=== PATIENT | female | born 1950 | race Caucasian/White ===

== ENCOUNTER → 2020-03-14 14:11 | Outpatient (CLI) | payer MEDICARE, SELFPAY ==
--- NOTE | ~2020-03-14 | CT_ITS ---
EXAMINATION: CT facial bones wo con EXAM DATE: 03/14/2020 14:38 INDICATION: Left facial edema, neck stiffness and swelling at base of neck. Left jaw discomfort. TECHNIQUE: Spiral CT of the facial bones was acquired in the axial plane without contrast. Coronal reformatted images were also reviewed. The dose-length product (DLP) for this examination was 271.97 mGy-cm. The exposure was tailored according to patient size, and iterative reconstruction (ASIR) wa s used as additional dose reduction technique. There is no prior study for comparison. FINDINGS: There are no displaced acute nasal bone fractures. The mandible, sinuses and orbits are in tact. The orbits, globes and extraocular muscles are unremarkable. The visualized sinuses and mas toid air cells are well aerated. 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 No intraparenchymal cancer I don't wall of the right answer his. Right eye just to get kyphotic narrowing back into school back to school identified he always has stuffy nose, clogged sinu ses this time appear once the air dried IMPRESSION: Unremarkable CT facial bone exam. Reviewed, dictated and finalized at location A.
--- NOTE | ~2020-03-14 | CT_ITS ---
EXAMINATION: CT soft tissue neck wo con EXAM DATE: 03/14/2020 14:38 INDICATION: Left facial edema, neck stiffness and swelling at the base of neck, left all discomfort . TECHNIQUE: Spiral CT of the neck was performed without contrast. Axial, coronal and sagittal images were reviewed. The dose-length product (DLP) for this examination was 350.78 mGy-cm. The exposure was tailored according to patient size (auto mA exposure control), and iterative reconstruction (ASIR ) was used as additional dose reduction technique. Correlation is made to CT facial bone examination same day. FINDINGS: The thyroid gland is unremarkable. The submandibular and parotid glands are symmetric. There is no cervical lymphadenopathy. There are no masses identified. The superior mediastinum is unremarkable. The airway is unremarkable. Parapharyngeal and pre-glottic fat planes are preserve d. Limited evaluation of cervical vessels on this noncontrast study. The orbits are unremarkable. Visualized sinuses and mastoid air cells are well aerated. Lung apices are clear. There is cerv ical spondylosis. IMPRESSION: Unremarkable neck CT examination. Reviewed, dictated and finalized at location A.
== END ==
PROVIDERS: Visit Provider Surgery Plastic and Reconstructive Surgery
DX: R60.0 Localized edema (principal)
CPT/HCPCS: 70486; 70490

== ENCOUNTER 2022-08-03 13:54 | Outpatient (CLI) | payer MEDICARE, SELFPAY ==
--- NOTE | 2022-08-03 15:25 | ECG_ITS ---
Measurements Intervals [place] Rate: 68 P: 53 NE: 153 QRS: 15 QRSD: 88 T: 65 QT: 386 QTc: 413 Interpretive Statements SINUS RHYTHM BASELINE ARTIFACT- I, AVR, AVL, AVF, V5-V6 NORMAL ECG NO PREVIOUS ECG AVAILABLE FOR COMPARISON Electronically Signed On 08-03-2022 17:00:31 RN PERIOPERATIVE by Rober Childress D.O.
[2022-08-03 16:08] LABS: Basophils Percent Auto 0.5 % (0.2-1.2); Eosinophils Absolute Auto 0.1 K/mm3 (0-0.3); Eosinophils Percent Auto 1.8 % (0-4.4); Hematocrit 40.9 % (37.0-47.0); Hemoglobin 13.3 g/dL (12.0-15.0); Immature Granulocyte Absolute 0.01 K/mm3 (0.00-0.031); Immature Granulocyte Percent A 0.2 % (0-0.5); Lymphocytes Absolute Auto 2.03 K/mm3 (0.9-3.2); Lymphocytes Percent Auto 33.1 % (18.3-44.2); Mean Corpuscular HGB Conc 32.5 g/dl (32-36); Mean Corpuscular Hemoglobin 31.5 pg (26-34); Mean Corpuscular Volume 96.9 fl (80-100); Mean Platelet Volume 10.7 fl (7.4-10.4); Monocytes Absolute Auto 0.5 K/mm3 (0.1-0.6); Monocytes Percent Auto 8.8 % (2.6-8.5); Neutrophils Absolute Auto 3.4 K/mm3 (1.3-6.7); Neutrophils Percent Auto 55.6 % (45.5-73.1); Platelet Count Result 232 k/mm3 (150-375); Red Blood Count 4.22 M/mm3 (4.2-5.4); Red Cell Distribution Width 12.9 % (11.5-14.5); White Blood Count 6.1 K/mm3 (4.5-10.0)
[2022-08-03 16:19] LABS: Alanine Aminotransferase 33 U/L (6-35); Albumin Level 4.5 g/dL (3.5-5.1); Alkaline Phosphatase 62 U/L (38-126); Anion Gap 5 mmol/L (8-16); Aspartate Amino Transferase 36 U/L (14-36); Bilirubin,Total 0.3 mg/dL (0.2-1.3); Blood Urea Nitrogen 25 mg/dL (7-17); Calcium 9.2 mg/dL (8.4-10.2); Carbon Dioxide 30 mmol/L (22-30); Chloride 105 mmol/L (98-107); Estimated Glomerular Filt Rate > 60; Glucose 92 mg/dL (65-110); Potassium 4.8 mmol/L (3.4-5.0); Sodium 140 mmol/L (137-145)
[2022-08-03 16:33] LABS: Prothrombin Time 12.3 Seconds (11.1-14.7)
[2022-08-03 16:34] LABS: Partial Thromboplastin Time 27.1 SECONDS (22.3-36.8)
== END 2022-08-03 13:55 | disposition home or self-care (01) ==
PROVIDERS: PCP Family Medicine; Visit Provider Urology
DX: Z01.818 Encounter for other preprocedural examination (principal); N81.4 Uterovaginal prolapse, unspecified
CPT/HCPCS: 36415; 80053; 85025; 85610; 85730; 86850; 86900; 86901; 93005

== ENCOUNTER 2022-08-13 00:07 | Day surgery (SDC) | payer MEDICARE, SELFPAY ==
[2022-08-03 14:31] VITALS: BP 145/70; PULSE 64; RESP 16; TEMP 36.6; O2SAT 96; BMI 27.0
--- NOTE | 2022-08-03 14:51 | PC.NURSE ---
Report to the Outpatient Waiting Room, entrance under the green pavilion located off [facility], at time _10:00AM on date __08/13/22 . Planned Procedure Time: ___12:00PM . Time changes happen often and if your time is changed the preop area will call you the afternoon before. - You and your visitor will be asked to self-screen and do not enter if you have any COVID symptoms. - Only one visitor is requested with a max of two and NO children visitors are allowed at this time. - The patient visitor may be requested to leave or wait in car when not with patient due to distancing restrictions. - A mask is optional within the hospital at this time. Patients may have clear liquids (water, carbonated beverages, clear teas, apple juice) until 3 hours prior to surgery with a maximum of 20 ounces. - No food from midnight until time of surgery Take the following medications with a SIP of water the morning of surgery: __NONE DO NOT STOP ANY OF YOUR OTHER PRESCRIPTION MEDICATIONS PRIOR TO SURGERY ?EXCEPT THE FOLLOWING Medications to discontinue per physician __HOLD ALL VITAMINS/SUPPLEMENTS 7 DAYS PRE-OP PER DR FIGUEROA Date to take last dose__08/06/22 Please no make-up, nail welsh, hairspray, perfume, deodorant, or body powder the day of surgery. No jewelry (including any body piercings) or valuables the day of surgery, leave them at home. Please take a shower or bath the night before, or the morning of, surgery with an antibacterial soap. Wear comfortable, loose fitting clothing. Children are encouraged to wear pajamas. - Jewelry must be removed prior to entering the operating room. Rings and piercings that are not removed may be cut off. - The hospital will not accept responsibility for valuables. - Please leave all valuables, including medications, at home the day of surgery. If you are going home after surgery, a licensed mule driver must drive you home. - NO public transportation without another adult if you receive anesthesia. - We recommend that an adult stay with you for 24 hours following discharge. - We also recommend that you do not drive, make important decision, drink alcoholic beverages, or take any drugs that were not prescribed by your health care provider for at least 24 hours after your discharge time. Follow any additional instructions given to you from your surgeon. If you or anyone in your household have experienced Covid symptoms in the past week, please notify your surgeon or the nurse liaison at the phone number below for possible testing. Telephone instructions given to ___PATIENT and asked if any additional questions and then verbalized understanding. Patient advised to call surgeon office or pre surgery nurse liaison [phone] if any additional questions.
--- NOTE | 2022-08-06 12:50 | PM.IMHP ---
H&P: HPI History of Present Illness Date/Time: 08/06/22 12:50 Chief Complaint: Uterine prolapse Narrative: Uterine prolapse with documented stress incontinence on urodynamics [facility] Past Medical History Medical History Scoliosis Family History Family History Mother Hypertension Social History Social History Smoking packs per day: 0.2 Smoking cigarettes per day: 4.0 Years smoked: 15 Smoking pack-years: 3.00 Smoking status: Never smoker Tobacco type: cigarettes Smoking end date: 12/01/84 Alcohol intake: former Alcohol use details: DRANK HEAVILY YEARS AGO Substance use: never Substance use type: crack/cocaine Other substance usage details: COCAINE & DIET PILLS IN PAST- Lack of Transportation: No Lack of Food: Never True Current Housing: I Have Housing Concerned About Future Housing: No Difficulty Paying Gas/Electric Bills: No Difficulty Paying for Meds: No Education: Trade/Vocational Certificate Difficulty w/ Childcare or Family Care: No Living arrangements: with family Additional living arrangements comments: Spiritual care concerns: No Meds Home Medications and Allergies Home Medications Medication Instructions Recorded Confirmed Type Cataplex B Core 1 tab-cap PO TID 08/03/22 08/03/22 History Congaplex 1 tab-cap PO TID 08/03/22 08/03/22 History Lactobacillus acidophilus 100 mg PO DAILY 08/03/22 08/03/22 History (Acidophilus capsule) Mind Memory Matrix 2 tab-cap PO DAILY 08/03/22 08/03/22 History Progesterone Cream 1 applic topical DAILY 08/03/22 08/03/22 History ascorbic acid (vitamin C) 1,000 mg 1 g PO DAILY 08/03/22 08/03/22 History tablet calcium carbonate 600 mg-vitamin 1 tablet PO DAILY 08/03/22 08/03/22 History D3 20 mcg (800 unit) chewable tablet (Caltrate 600 plus D) geriatric multivitamin-min 1 tablet PO DAILY 08/03/22 08/03/22 History glucosamine 1 tablet PO DAILY 08/03/22 08/03/22 History sulfate-methylsulfonylmethane 500 mg-500 mg tablet magnesium 100 mg tablet 100 mg PO HS 08/03/22 08/03/22 History omega 4-wkp-ndr-fish oil 1,200 mg 1 cap PO TID 08/03/22 08/03/22 History (144 mg-216 mg) capsule (Fish Oil) Allergies Allergy/AdvReac Type Severity Reaction Status Date / Time nitrofurantoin Allergy Itching Verified 08/03/22 15:30 [From Macrobid] cephalexin AdvReac Unknown Jittery Verified 08/03/22 14:14 ciprofloxacin AdvReac Unknown Muscle Verified 08/03/22 14:14 Spasms codeine AdvReac Unknown VERTIGO Verified 08/03/22 14:14 Exam Narrative: No acute distress Alert orient x3 Cystocele +3 [place] +1 Urethral mobility Assessment and Plan Assessment and plan (1) Uterine prolapse: Code(s): N81.4 - Uterovaginal prolapse, unspecified Status: Acute (2) ESTELITA (stress urinary incontinence, female): Code(s): N39.3 - Stress incontinence (female) (male) Status: Acute Plan Robotic colpopexy, urethral sling. Understands risks of bleeding, infection, diskitis, damage surrounding organs, damage to the urinary tract, vaginal mesh extrusion, urinary tract mesh erosion, obstructive voiding requiring a secondary procedure, recurrent or persistent prolapse, hip and leg pain, dyspareunia. Agrees to proceed
[2022-08-13] VITALS (15 sets, daily range): BP systolic 89–162; BP diastolic 50–94; PULSE 60–73; RESP 10–20; TEMP 36.1–36.4; O2SAT 94–100
--- NOTE | ~2022-08-13 | XR_ITS ---
EXAMINATION: XR retrograde pyelogram LT DATE: 08/13/2022 15:10 CDT INDICATION: CYSTO/RETRO LT SIDE . TECHNIQUE: 1 fluoroscopic image and a cine clip of 53 images of the left upper pelvis were obtained d uring left retrograde pyelogram performed by the surgeon. I was not present in the operating room. Fl uoroscopy exposure time was 15.8 seconds. Air Kerma 4.9611 mGy. DAP 0.0983 mGym2. COMPARISON: None FINDINGS: Contrast fills a mildly ectatic but otherwise normal-appearing left ureter. No filling defect confide ntly identified. IMPRESSION: Fluoroscopic documentation of left retrograde pyelogram. Please refer to the operative note for compl ete procedural details . Reviewed, dictated and finalized at location K. IMPRESSION: Fluoroscopic documentation of left retrograde pyelogram. Please refer to the op erative note for complete procedural details .
--- NOTE | 2022-08-13 07:13 | WPDHPUPDATE1 ---
History and Physical Update Update Date/Time: 08/13/22 07:13 History and Physical has been reviewed, including an updated exam of the patient. There are NO changes in the patient's condition. Risks, benefits, and alternatives have been discussed and questions answered. Patient agrees to proceed with procedure.
--- NOTE | 2022-08-13 10:52 | SUR.PREOP ---
DR FIGUEROA VERBALLY TOLD ME TO HAVE LINDA AND FLAGYL FOR ABX FOR THE SHARED CASE.
--- NOTE | 2022-08-13 10:53 | WPDANESEPPF ---
Anes - Initial Pre Proc Eval Procedure: Operation Date: 08/13/22 12:00 Proposed Procedures p Robotic Sacrocolpopexy, Urethral Sling - Jose Martinez MD s Robotic Assisted Supracervical Hysterectomy, Bilateral Salpingo-oophorectomy - Lara CameronGermain Valladares DO Date/Time: 08/13/22 10:53 Surgeon: Jose Martinez MD Pre Op Diagnosis: uterine prolapse, stress incont Patient Data Age: 71 Gender: F Height: 1.65 m Weight: 73.6 kg Last Vital Signs Temp 36.6 C 08/03/22 14:31 Pulse 64 08/03/22 14:31 Resp 16 08/03/22 14:31 BP 145/70 H 08/03/22 14:31 Pulse Ox 96 08/03/22 14:31 O2 Del Method Room Air 08/03/22 14:31 Allergies Allergy/AdvReac Type Severity Reaction Status Date / Time nitrofurantoin Allergy Itching Verified 08/03/22 15:30 [From Macrobid] cephalexin AdvReac Unknown Jittery Verified 08/03/22 14:14 ciprofloxacin AdvReac Unknown Muscle Verified 08/03/22 14:14 Spasms codeine AdvReac Unknown VERTIGO Verified 08/03/22 14:14 Home Medications Medication Instructions Recorded Confirmed Type Cataplex B Core 1 tab-cap PO TID 08/03/22 08/03/22 History Congaplex 1 tab-cap PO TID 08/03/22 08/03/22 History Lactobacillus acidophilus 100 mg PO DAILY 08/03/22 08/03/22 History (Acidophilus capsule) Mind Memory Matrix 2 tab-cap PO DAILY 08/03/22 08/03/22 History Progesterone Cream 1 applic topical DAILY 08/03/22 08/03/22 History ascorbic acid (vitamin C) 1,000 mg 1 g PO DAILY 08/03/22 08/03/22 History tablet calcium carbonate 600 mg-vitamin 1 tablet PO DAILY 08/03/22 08/03/22 History D3 20 mcg (800 unit) chewable tablet (Caltrate 600 plus D) geriatric multivitamin-min 1 tablet PO DAILY 08/03/22 08/03/22 History glucosamine 1 tablet PO DAILY 08/03/22 08/03/22 History sulfate-methylsulfonylmethane 500 mg-500 mg tablet magnesium 100 mg tablet 100 mg PO HS 08/03/22 08/03/22 History omega 0-vwg-lvh-fish oil 1,200 mg 1 cap PO TID 08/03/22 08/03/22 History (144 mg-216 mg) capsule (Fish Oil) Patient hx anesthesia problems: none Family hx anesthesia problems: none Results Review: All pre-operative results and documents have been reviewed as part of the pre-operative evaluation. [facility] Past Medical History Medical History Scoliosis Family History Family History Mother Hypertension Social History Social History Smoking packs per day: 0.2 Smoking cigarettes per day: 4.0 Years smoked: 15 Smoking pack-years: 3.00 Smoking status: Never smoker Tobacco type: cigarettes Smoking end date: 12/01/84 Alcohol intake: former Alcohol use details: DRANK HEAVILY YEARS AGO Substance use: never Substance use type: crack/cocaine Other substance usage details: COCAINE & DIET PILLS IN PAST- Lack of Transportation: No Lack of Food: Never True Current Housing: I Have Housing Concerned About Future Housing: No Difficulty Paying Gas/Electric Bills: No Difficulty Paying for Meds: No Education: Trade/Vocational Certificate Difficulty w/ Childcare or Family Care: No Living arrangements: with family Additional living arrangements comments: Spiritual care concerns: No Anes - Eval Final PreProcedure Day of Procedure 08/13/22 10:53 Patient weight: overweight Heart: regular rate and rhythm Lungs: clear to auscultation Airway: Mallampati scale class II Neurological: alert and oriented Last oral intake: >/= 8 hours Emergent: no Anesthetic plan: proceed Anesthesia type and monitoring: general ETT and standard monitoring Results Review: All pre-operative results and documents have been reviewed as part of the pre-operative evaluation. Informed Consent: The patient's anesthetic plan and its attendant risks and benefits were discussed with the
[2022-08-13 11:24] LABS: Glucose Point of Care 50 mg/dl (65-105)
[2022-08-13] MEDS: LACTATED RINGERS 1,000 ML 30 ML IV CONT ×3 (12:12→16:45)
[2022-08-13] MEDS: SCOPOLAMINE 1.5 MG PATCH TRANSDERM (12:12)
--- NOTE | 2022-08-13 12:13 | WPDHPUPDATE1 ---
History and Physical Update Update Date/Time: 08/13/22 12:13 History and Physical has been reviewed, including an updated exam of the patient. There are NO changes in the patient's condition. Risks, benefits, and alternatives have been discussed and questions answered. Patient agrees to proceed with procedure.
--- NOTE | 2022-08-13 12:13 | PM.IMHP ---
H&P: HPI History of Present Illness Date/Time: 08/13/22 12:13 Chief Complaint: I'm here for my hysterectomy Narrative: Lida presents for a robotic assisted laparoscopic supracervical hysterectomy with bilateral salpingo-oophorectomy due to pelvic organ prolapse and chronic pelvic pressure and pain. Review of Systems Review of Systems: All systems reviewed & are unremarkable except as noted in HPI and below PMFSH Past Medical History Medical History Scoliosis Family History Family History Mother Hypertension Social History Social History Smoking packs per day: 0.2 Smoking cigarettes per day: 4.0 Years smoked: 15 Smoking pack-years: 3.00 Smoking status: Never smoker Tobacco type: cigarettes Smoking end date: 12/01/84 Alcohol intake: former Alcohol use details: DRANK HEAVILY YEARS AGO Substance use: never Substance use type: crack/cocaine Other substance usage details: COCAINE & DIET PILLS IN PAST- Lack of Transportation: No Lack of Food: Never True Current Housing: I Have Housing Concerned About Future Housing: No Difficulty Paying Gas/Electric Bills: No Difficulty Paying for Meds: No Education: Trade/Vocational Certificate Difficulty w/ Childcare or Family Care: No Living arrangements: with family Additional living arrangements comments: Spiritual care concerns: No Meds Home Medications and Allergies Home Medications Medication Instructions Recorded Confirmed Type Cataplex B Core 1 tab-cap PO TID 08/03/22 08/03/22 History Congaplex 1 tab-cap PO TID 08/03/22 08/03/22 History Lactobacillus acidophilus 100 mg PO DAILY 08/03/22 08/03/22 History (Acidophilus capsule) Mind Memory Matrix 2 tab-cap PO DAILY 08/03/22 08/03/22 History Progesterone Cream 1 applic topical DAILY 08/03/22 08/03/22 History ascorbic acid (vitamin C) 1,000 mg 1 g PO DAILY 08/03/22 08/03/22 History tablet calcium carbonate 600 mg-vitamin 1 tablet PO DAILY 08/03/22 08/03/22 History D3 20 mcg (800 unit) chewable tablet (Caltrate 600 plus D) geriatric multivitamin-min 1 tablet PO DAILY 08/03/22 08/03/22 History glucosamine 1 tablet PO DAILY 08/03/22 08/03/22 History sulfate-methylsulfonylmethane 500 mg-500 mg tablet magnesium 100 mg tablet 100 mg PO HS 08/03/22 08/03/22 History omega 1-egf-bbq-fish oil 1,200 mg 1 cap PO TID 08/03/22 08/03/22 History (144 mg-216 mg) capsule (Fish Oil) Allergies Allergy/AdvReac Type Severity Reaction Status Date / Time nitrofurantoin Allergy Itching Verified 08/13/22 12:13 [From Macrobid] cephalexin AdvReac Unknown Jittery Verified 08/13/22 12:13 ciprofloxacin AdvReac Unknown Muscle Verified 08/13/22 12:13 Spasms codeine AdvReac Unknown VERTIGO Verified 08/13/22 12:13 Vital Signs Vital Signs - 24 hr 08/13/22 12:01 Temperature 36.1 C L Pulse Rate 73 Respiratory Rate 14 Blood Pressure 160/79 H Pulse Oximetry 100 Oxygen Delivery Room Air Exam Const: General: comfortable and no acute distress Eyes: General: appearance normal, both eyes and all related structures Resp: Effort & Inspection: normal respiratory effort Auscultation: clear to auscultation bilaterally Cardio: Rate: regular rate Rhythm: regular rhythm GI: GI Palp: Yes Soft to palpation Auscultation: normal bowel sounds Neuro: General: gait normal Speech: normal speech Motor exam (neuro): 5/5 motor strength present throughout Sensory Exam: normal sensation Psych: Mental Status: mental status grossly normal Affect: normal affect Assessment and Plan Assessment and plan (1) Uterine prolapse: Code(s): N81.4 - Uterovaginal prolapse, unspecified Status: Acute (2) Chronic pelvic pain in female: Code(s): R10.2 - Pelvic and perine
[2022-08-13] MEDS: levoFLOXacin 500 MG/D5W 100 ML 500 MG/100 ML BAG 100 MG IVPB (12:17)
[2022-08-13] MEDS: BUPIVACAINE/EPINEPHRINE 0.25% 50 ML VIAL 10 ML INFILTRATE (13:11)
[2022-08-13] MEDS: metroNIDAZOLE 500 MG/ISO 100ML 500 MG/100 ML BAG 100 MG IVPB ×2 (13:17→22:40)
--- NOTE | 2022-08-13 13:23 | W.PM.PROC2 ---
Procedure Note - Detailed Date of Procedure 08/13/22 Pre-op Diagnosis Uterovaginal prolapse, chronic pelvic pain d/t uterine prolapse Post-op Diagnosis Same Procedure Performed Robotic assisted total laparoscopic supracervical hysterectomy, bilateral salpingo-oophorectomy. Robotic [id number] by Dr. Martinez Surgeon Lara Valladares DO [employer] Anesthesia General Indications Uterovaginal prolapse causing chronic pelvic pain Findings Normal vulva and vaginal canal. Small cervix. Uterovaginal prolapse. Internally, the bowels, liver and pelvic organs were unremarkable. Description of Procedure Patient was taken to the operating room she was placed under general anesthesia. She was prepped and draped normal sterile fashion in the dorsal lithotomy position. Preoperative antibiotics were given and a time-out was performed. A sponge stick was placed in the vagina. Abdominal entry was gained by Dr. Martinez, please see his operative note for further details. The patient was then placed in steep Trendelenburg position and the robot was docked. The pelvic anatomy was surveyed and found to be described as above. Starting on the left side the peritoneum over the psoas muscle was opened and a defect was made. The IP ligament was identified and isolated, making sure to avoid the iliac vessels and the ureter on that side. Once the IP was skeletonized it was cauterized and transected using the vessel sealer. The dissection was then carried up through the peritoneum and the round ligament was cauterized and transected. The 2 leaves of the broad ligament were opened and the were cauterized down to the level of the uterine vessels. These were then cauterized and transected. Bladder flap was created making sure to leave residual peritoneum behind. The procedure was then repeated in identical fashion on the right-hand side. Once the bladder flap was completed the peritoneum on the posterior side of the uterus was freed. I then transected across the lower portion of the uterus where it meets the cervix. The cervical os was then cauterized. All pedicles were found to be hemostatic. Please see Dr. Martinez's dictation for the remaining description of the procedure. At the time I left the OR the patient was in stable condition. Estimated Blood Loss 5 Drains No Packing No Pathology Yes (Uterus, cervix, bilateral tubes and ovaries) Complications No immediate complications Condition Stable Disposition PACU
[2022-08-13] MEDS: KETOROLAC 15 MG/ML VIAL (*BKC) IV PUSH (14:50)
--- NOTE | 2022-08-13 15:19 | W.PM.PROC2 ---
Procedure Note - Detailed Date of Procedure 08/13/22 Pre-op Diagnosis uterine prolapse, stress incontinence Post-op Diagnosis Same Procedure Performed Robotic assisted laparoscopic sacral colpopexy Urethral sling Cystoscopy, Left retrograde pyelogram Surgeon Jose Martinez MD Anesthesia General Indications A woman with uterine prolapse as well as stress incontinence. She desires surgical correction. She is here for the above. She understands risks of bleeding, infection, diskitis, damage to surrounding organs, bowel injury, bowel obstruction, mesh related complications including exposure and extrusion, postoperative voiding dysfunction including incontinence and retention, need for ancillary procedures, dyspareunia, recurrence of prolapse, and other perioperative intraoperative postoperative complications. She agrees to proceed. Findings See below Description of Procedure She was correctly identified. Informed consent obtained. She from the operating room. She was given general anesthesia. She was given appropriate perioperative antibiotics. She was placed a low lithotomy position. Pressure points were padded. A time-out performed. I marked out the skin 3 fingerbreadths cephalad to the umbilicus. I anesthetized the skin. I incised the skin. I dissected down to the fascia. I grasped the fascia with Lillian clamps. I entered the fascia sharply in a Dunbar type technique. I placed sutures for later fascial closure. I placed a midline trocar. I examined the abdomen. There is no sign of any injury. Under direct vision I placed 2 additional trocars in the right upper quadrant and 2 additional trocars the left upper quadrant. She was placed in steep Trendelenburg. The robot was docked. Her quality control completed their portion of the procedure. Please see that operative report for details. I then sat at the console. The Sizer in the vagina created plane on the anterior and posterior vaginal wall. I took great care not to injure the vagina, bladder, or rectum. I introduced the mesh into the abdomen. I sewed the anterior leaflet of mesh on the anterior vaginal wall. I sewed the posterior leaflet of mesh on the posterior vaginal wall. This was done with several sutures of 2 0 Basom-Adan. I reflected the colon laterally. I opened the posterior peritoneum over the sacral promontory. I carried this into the cul-de-sac. I freed up the edges for later retroperitonealization. I located the anterior longitudinal ligament the sacrum. I cleaned off all fatty tissues. I then tensioned my mesh appropriately. I did a vaginal exam the bedside. I assured prolapse reduction without undue tension. I then sewed the proximal leaflet of mesh onto the anterior longitudinal ligament of the sacrum with several sutures of 2 0 Basom-Adan. I then used a 2 0 Monocryl to completely and meticulously retroperitonealized all mesh. I allowed the colon to go back to its normal anatomic location. There is no sign of any impingement. The specimen was then removed. All ports removed. Fascia was tied down. Skin was closed with Monocryl and surgical glue. She was repositioned and prepped for urethral sling. I marked out the inner thigh incisions. I anesthetized the skin and made the incisions. I then anesthetized the anterior vaginal wall at the mid urethra. I made a 1 cm incision. I dissected out laterally taking great care not to injure the refilled vaginal wall. I passed the helical trocars. I did this 1st on the left and then on the right. This was done from the thigh incision towards the vaginal incision. Sling was connected to the trocars and brought out the thigh incision. I tensioned the sling appropriately. I cut and the plastic sheaths. I closed the incision with 2 0 Vicryl. I then performed cystoscopy. There was no tumors or surgical artifact. The right ureters seen to excrete urine. It was quite clear. He was very difficult to discern excre
--- NOTE | 2022-08-13 17:06 | SUR.PHASEI ---
1705 before removal of andres cath i inserted about 420ml of saline into bladder then discontinued andres catheter
[2022-08-13] MEDS: ONDANSETRON INJ 4 MG/2 ML VIAL IV PUSH (17:20)
[2022-08-13] MEDS: diphenhydrAMINE HCl INJ 50 MG/ML VIAL 25 MG IV PUSH (18:25)
--- NOTE | 2022-08-13 18:30 | SUR.PHASEII ---
1715 to bathroom per wheelchair,voided small amount per pt,bladder scanned for 545ml.
--- NOTE | 2022-08-13 19:34 | PC.NURSE ---
This patient, Lida Alvarado, was received from [Recovery] on 08/14/22 at 1934. Patient/family oriented to unit policies and routines.
--- NOTE | 2022-08-13 19:45 | SUR.PHASEII ---
Addendum entered by Nurys Carpio RN 08/13/22 19:49: amend time dr loredo notified to 1939 Original Note: 1924 pt ambulated to bathroom and voided,expressed wish to be admitted,just not feeling good enough to go home. proceeded to arrange admission .pt place on hospital bed .and admitted to room 292, at side. 1739 dr loredo aware pt admission.
[2022-08-13] MEDS: KCL 20 MEQ/D5/0.45% SOD CHL 1,000 ML 100 ML IV CONT (22:40)
[2022-08-13] MEDS: ACETAMINOPHEN 325 MG TABLET 650 MG PO (22:58)
[2022-08-14 00:40] VITALS: BP 137/78; PULSE 80; RESP 18; TEMP 36.5; O2SAT 96
[2022-08-14] MEDS: GABAPENTIN 300 MG CAPSULE PO ×2 (01:01→08:37)
[2022-08-14] MEDS: ZOLPIDEM TARTRATE (*CRX) 5 MG TABLET PO (01:02)
[2022-08-14] MEDS: BENZOCAINE/MENTHOL (*BKC) 18 EA LOZENGE 1 LOZENGE PO (01:05)
[2022-08-14] MEDS: DOCUSATE SODIUM 100 MG CAPSULE PO (01:22)
[2022-08-14] MEDS: ACETAMINOPHEN 500 MG TABLET 1000 MG PO ×2 (02:31→08:37)
[2022-08-14 05:43] VITALS: BP 119/69; PULSE 66; RESP 18; TEMP 36.9; O2SAT 96
[2022-08-14] MEDS: metroNIDAZOLE 500 MG/ISO 100ML 500 MG/100 ML BAG 100 MG IVPB (07:20)
--- NOTE | 2022-08-14 07:58 | WPDANESPN ---
Anes - Prog Note Post-Op Date/Time: 08/14/22 07:58 Cardiovascular status: normal Respiratory status: normal Airway patency: baseline Mental status: baseline Post-Op hydration status: normal Vital Signs: Last Vital Signs Temp 36.9 C 08/14/22 05:43 Pulse 66 08/14/22 05:43 Resp 18 08/14/22 05:43 BP 119/69 08/14/22 05:43 Pulse Ox 96 08/14/22 05:43 O2 Del Method Room Air 08/14/22 05:43 O2 Flow Rate 8 08/13/22 16:00 Pain Score (VAS): 5/10 I/O: Intake & Output 08/13/22 08/13/22 08/14/22 15:59 23:59 07:59 Intake Total 1667 958 0528 Output Total 310 500 Balance 1200 -110 600 08/13/22 11:21 POC Capillary Glucose 50 L* Post-procedural complaints: none Patient Feedback: Patient satisfied with anesthetic care.
[2022-08-14 08:00] VITALS: BP 126/79; PULSE 75; RESP 16; TEMP 36.9; O2SAT 100
[2022-08-14] MEDS: ENOXAPARIN 30 MG/0.3 ML SYRINGE SUB-Q (08:37)
[2022-08-14] MEDS: KETOROLAC 15 MG/ML VIAL (*BKC) IV PUSH (09:54)
--- NOTE | 2022-08-14 10:08 | PM.GYNPNOP ---
SKE[employer] - A/P Postoperative Procedures: Procedures Operation Date: 08/13/22 12:00 Actual Procedure Side Surgeon p Robotic Sacrocolpopexy, Urethral Sling, Cystoscopy with Left Retrograde Pyelogram Not Applicable Jose Martinez MD s Robotic Assisted Supracervical Hysterectomy, Bilateral Salpingo-oophorectomy Marian Valladares DO Postoperative day: 1 Time Spent With Patient Time: Total time spent is greater than 50% in coordination of care (as documented) at patient's floor/unit and/or counseling patient: Time with patient: 15 - 25 minutes [employer]- PN:Subj Post-Op Subjective Date/time seen: 08/14/22 10:08 Lida is POD#1 s/p RTL supracervical hyst/BSO and sacrocolpopexy. She is feeling well. Pain currently 6/10 but says it's tolerable. She has taken tylenol and gabapentin overnight. Didn't want to try taking hydrocodone for fear or falling. She has been voiding well. Not passing flatus yet but feels her stomach gurgling and has been burping. Had breakfast without nausea, ambulating without difficulty. She denies nausea, vomiting, chest pain, dyspnea. 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 She denies leg pain. Review of Systems Review of Systems: All systems reviewed & are unremarkable except as noted in HPI and below Exam Narrative: A/O x3, NAD, well-appearing, good color Const: General: cooperative, healthy appearing, comfortable and no acute distress HENMT: Head: normal to inspection Face and sinus: normal facial exam Mouth: Yes Normal oral and palatal mucosa present Chest: Chest palpation & inspection: normal inspection of the chest Resp: Effort & Inspection: normal respiratory effort and able to speak in complete sentences Cardio: Rate: regular rate Rhythm: regular rhythm Heart sounds: S1 normal heart sound present and S2 normal heart sound present GI: Inspection: normal to inspection Percussion: Yes normal to percussion Auscultation: normal bowel sounds Skin: General skin exam: normal color, no rashes or lesions noted and elasticity normal [employer] - PN: Obj Data Vital Signs Vital Signs: Vital Signs - 24 hr 08/13/22 12:01 08/13/22 15:30 08/13/22 15:45 Temperature 36.1 C L 36.4 C Pulse Rate 73 64 64 Respiratory Rate 14 12 10 L Blood Pressure 160/79 H 89/50 L 114/63 Pulse Oximetry 100 100 100 Oxygen Delivery Room Air Simple Face Mask Simple Face Mask Oxygen Flow Rate 8 8 08/13/22 15:40 08/13/22 16:00 08/13/22 16:15 Temperature Pulse Rate 64 63 67 Respiratory Rate 10 L 10 L 13 Blood Pressure 119/62 119/62 122/64 Pulse Oximetry 100 100 94 Oxygen Delivery Simple Face Mask Simple Face Mask Room Air Oxygen Flow Rate 8 8 08/13/22 16:30 08/13/22 16:45 08/13/22 17:00 Temperature Pulse Rate 63 66 63 Respiratory Rate 10 L 10 L 15 Blood Pressure 125/65 123/67 136/70 Pulse Oximetry 94 95 95 Oxygen Delivery Room Air Room Air Room Air Oxygen Flow Rate 08/13/22 17:09 08/13/22 17:35 08/13/22 18:05 Temperature Pulse Rate 69 60 69 Respiratory Rate 18 16 16 Blood Pressure 162/92 H 158/80 H 160/88 H Pulse Oximetry Oxygen Delivery Room Air Room Air Room Air Oxygen Flow Rate 08/13/22 18:32 08/13/22 19:00 08/13/22 19:56 Temperature 36.4 C Pulse Rate 71 66 73 Respiratory Rate 14 14 20 Blood Pressure 160/80 H 148/75 H 154/94 H Pulse Oximetry 96 Oxygen Delivery Room Air Room Air Oxygen Flow Rate 08/14/22 00:40 08/13/22 19:56 08/14/22 00:40 Temperature 36.5 C Pulse Rate 80 73 80 Respiratory Rate 18 18 18 Blood Pressure 137/78 Pulse Oximetry 96 96 96 Oxygen Delivery Room Air Room Air Oxygen Flow Rate 08/14/22 05:43 08/14/22 05:43 08/14/22 08:00 Temperature 36.9 C 36.9 C Pulse Rate 66 66 75 Respiratory Rate 18 18 16 Blood Pressure 119/69 126/79 Pulse Oximetry 96 96 100 Oxygen Delivery Room Air Oxygen Flow Rate 08/14/22 07:25 Temperature Pulse Rate Respiratory Rate Blood Pressure Pulse Oxim
--- NOTE | 2022-08-14 10:14 | PM.DS ---
DS: Admitting Diagnosis Discharge Date 08/14/22 Admitting Diagnosis s/p Robotic assisted total supracervical hysterectomy with BSO, robotic sacrocolpopexy and mid-urethral sling DS: Discharge Diagnosis Discharge Diagnosis (1) S/P hysterectomy: Code(s): Z90.710 - Acquired absence of both cervix and uterus Status: Acute (2) Chronic pelvic pain in female: Code(s): R10.2 - Pelvic and perineal pain; G89.29 - Other chronic pain Status: Acute (3) ESTELITA (stress urinary incontinence, female): Code(s): N39.3 - Stress incontinence (female) (male) Status: Acute Plan Discharge to home DS: Summary Hospital Course Reason for hospitalization: Prolonged recovery from anesthesia Hospital Course: Patient was admitted for the above mentioned surgical procedure. She had a prolonged recover from anesthesia and didn't feel comfortable going home so elected to stay overnight for pain management and observance of tolerance to medication. She did well overnight without complication. The morning after surgery, she was voiding without difficulty, pain controlled with oral medications and had not yet passed flatus but had good bowel sounds and was burping. She was tolerating oral medications. Status at Discharge Functional status at discharge: independent ambulation Overall status at discharge: patient is back to baseline Time Spent with Patient Time attestation: Total time spent providing and/or coordinating discharge services: Time spent: Less than 30 minutes Exam Narrative: See exam from progress note today DS: Data Data Completed and Pending Pending studies at discharge: Pending at discharge 08/13/22 13:12 Surgical [PTH] Routine Labs on day of discharge: Labs from last 24 hours 08/13/22 11:21 POC Capillary Glucose 50 L* Discharge Plan Discharge Patient Disposition: Home, Self-Care Discharge Instructions: No lifting >20lb, exercise for 6 weeks No tub bath or pool for 2 weeks No intercourse for 6 weeks She was already given her prescriptions Some Complications to Watch for: ? Excessive incisional or vaginal drainage (more than one pad an hour). Additional Instructions: ? Expect some vaginal spotting for 2-4 days. ? Nothing vaginally (i.e. douching, intercourse, tampons) until follow up visit. Skin Adhesive Care Skin adhesive is medical glue used to close wounds. It is a substitute for johanny and stitches. Skin adhesive wound closures take less time and do not require anesthesia. You have less pain and a lower risk of infection than with johanny or stitches. Skin adhesive will fall off after the wound is healed. Discharge instructions: Keep wound clean and dry. You can shower 24 hours after adhesive is applied but do not soak in bath or hot tub until wound is healed or provider approves. Do not pick or scrub your wound or the adhesive. This can make your wound reopen. ?Do not apply ointments to your wound. These include antibiotic or other ointments that would contain petroleum jelly. These products will remove skin adhesive and reopen the wound. Contact your provider if you have a fever, your wound is red and warm to touch or have questions about your condition or care. Seek care immediately if your wound is draining fluid or open. Remove the Scopolamine patch that was placed behind your ear in 72 hours or less. Wash your hands after touching. Stand Alone Forms: General Discharge Instructions Follow-up/Referrals: Jose Martinez MD [Physician] - (6 weeks) Discharge Medications: New hydrocodone-acetaminophen 5-325 mg tablet 1 tablet PO Q6H PRN (Reason: pain) Qty: 10 0RF Continued Cataplex B Core 1 tab-cap PO TID Congaplex 1 tab-cap PO TID Mind Memory Matrix 2 tab-cap PO DAILY ascorbic acid (vitamin C) 1,000 mg Tablet 1 g PO DAILY Acidophilus Capsule 100 mg PO DAILY geriatric multivitamin-min Tablet
== END 2022-08-14 10:50 | disposition home or self-care (01) ==
LOC: ANHSURGERY 17:25 → ANHOB2 19:24
PROVIDERS: Obstetrics & Gynecology Gynecologic Oncology; PCP Family Medicine; Visit Provider Urology
PROC: (CPT 57425; principal; 2022-08-13 12:00)
PROC: (CPT 58542; 2022-08-13 12:00)
DX: N81.4 Uterovaginal prolapse, unspecified (principal); N39.3 Stress incontinence (female) (male); R10.2 Pelvic and perineal pain; G89.29 Other chronic pain; D25.9 Leiomyoma of uterus, unspecified
CPT/HCPCS: 58542; 51992; 57425; 74420; 82948; 88307; 99199; A9270; C1758; C1769; C1771; C1781; C9290; J1100; J1170; J1200; J1650; J1885; J1956; J2001; J2250; J2405; J2704; J2710; J3010; J3480; J7120

== ENCOUNTER 2023-03-06 13:02 | Outpatient (CLI) | payer MEDICARE, SELFPAY ==
--- NOTE | ~2023-03-06 | MM_ITS ---
EXAMINATION: MM screening ko BI w benita HISTORY: Screening mammogram TECHNIQUE: Craniocaudal and mediolateral oblique 3-D tomosynthesis images were obtained and synthetic 2-D images were generated. CAD analysis was submitted and interpreted. COMPARISON: No prior mammogram is available for comparison at this institution. BREAST PARENCHYMAL COMPOSITION: There are scattered areas of fibroglandular density. FINDINGS: RIGHT BREAST: No suspicious mass, calcification, or architectural distortion are identified to sugges t malignancy. LEFT BREAST: There is a possible mass in the middle third of the upper outer quadrant of the breast 3 .5 cm from the nipple. IMPRESSION: 1. Possible left breast mass which may represent the patient's baseline however no comparison is curr ently available. 2. Comparison with prior mammograms is necessary. BI-RADS Category 0: Incomplete: Needs comparison with prior mammograms. Reviewed, dictated and finalized at location A. IMPRESSION: 1. Possible left breast mass which may represent the patient's baseline however no comparison is currently available. 2. Comparison with prior mammograms is necessary. BI-RADS Category 0: Incomplete: Needs comparison with prior mammograms.
== END 2023-03-06 13:03 | disposition home or self-care (01) ==
LOC: CHSIMG 13:05
PROVIDERS: Visit Provider Obstetrics & Gynecology
DX: Z12.31 Encounter for screening mammogram for malignant neoplasm of breast (principal); R92.8 Other abnormal and inconclusive findings on diagnostic imaging of breast
CPT/HCPCS: 77063; 77067

== ENCOUNTER 2024-10-04 14:35 | Emergency (ER) | payer MEDICARE, SELFPAY ==
[2024-10-04 14:47] VITALS: BP 140/86; PULSE 69; RESP 16; TEMP 36.1; O2SAT 99
--- NOTE | 2024-10-04 15:06 | ED_ITS ---
HPI - Female Genitourinary General Chief complaint: Urogenital-Female Stated complaint: UTI SYMPTOMS Time Seen by Provider: 10/04/24 14:38 Source: patient Mode of arrival: ambulatory Limitations: no limitations History of Present Illness HPI Narrative: Patient presents to the clinic for complaints of burning with urination, urgency, and frequency x 2 days. She states that she was on vacation and swimming in a pool that was not very clean. She also states the she is having some vaginal irritation and believes that she has a yeast infection. Denies any flank pain. Related Data Home Medications ?Medication ?Instructions ?Recorded ?Confirmed ?Last Taken ?Type Cataplex B Core 1 tab-cap PO TID 08/03/22 08/03/22 Unknown History Congaplex 1 tab-cap PO TID 08/03/22 08/03/22 Unknown History Lactobacillus acidophilus 100 mg PO DAILY 08/03/22 08/03/22 Unknown History (Acidophilus capsule) Mind Memory Matrix 2 tab-cap PO DAILY 08/03/22 08/03/22 Unknown History Progesterone Cream 1 applic topical DAILY 08/03/22 08/03/22 Unknown History ascorbic acid (vitamin C) 1,000 mg 1 g PO DAILY 08/03/22 08/03/22 Unknown History tablet calcium 600 mg (as carbonate)-vit 1 tablet PO DAILY 08/03/22 08/03/22 Unknown History D3 20 mcg (800 unit) chewable tablet (Caltrate plus D) geriatric multivitamin-min 1 tablet PO DAILY 08/03/22 08/03/22 Unknown History glucosamine 1 tablet PO DAILY 08/03/22 08/03/22 Unknown History sulfate-methylsulfonylmethane 500 mg-500 mg tablet magnesium 100 mg tablet 100 mg PO HS 08/03/22 08/03/22 Unknown History omega 7-bpu-dbq-fish oil 1,200 mg 1 cap PO TID 08/03/22 08/03/22 Unknown History (144 mg-216 mg) capsule (Fish Oil) Allergies Allergy/AdvReac Type Severity Reaction Status Date / Time nitrofurantoin (From Allergy Itching Verified 08/13/22 12:13 Macrobid) cephalexin AdvReac Unknown Jittery Verified 08/13/22 12:13 ciprofloxacin AdvReac Unknown Muscle Verified 08/13/22 12:13 Spasms codeine AdvReac Unknown VERTIGO Verified 08/13/22 12:13 Review of Systems Review of Systems: CONSTITUTIONAL: Denies body aches, fever, chills, or sweats. CARDIOVASCULAR: Denies chest pain, palpitations, or edema. RESPIRATORY: Denies cough or dyspnea. GASTROINTESTINAL: Denies abdominal pain, nausea, vomiting, or diarrhea. GENITOURINARY: Reports dysuria, frequency, urgency. Denies hematuria, flank pain, discharge. SKIN: Denies rash, itching, or wounds. MUSCULOSKELETAL: Denies back pain or myalgia. All systems reviewed & are unremarkable except as noted in HPI and below PMFSH Past Medical History Medical History Scoliosis Family History Family History Mother Hypertension Social History Social History Smoking packs per day: 0.2 Smoking cigarettes per day: 4.0 Years smoked: 15 Smoking pack-years: 3.00 Smoking status: Never smoker Tobacco type: cigarettes Smoking end date: 12/01/84 Alcohol intake: former Alcohol use details: DRANK HEAVILY YEARS AGO Substance use: never Substance use type: crack/cocaine Other substance usage details: COCAINE & DIET PILLS IN PAST- 1967- Lack of Transportation: No Lack of Food: Never True Current Housing: I Have Housing Concerned About Future Housing: No Difficulty Paying Gas/Electric Bills: No Difficulty Paying for Meds: No Education: Trade/Vocational Certificate Difficulty w/ Childcare or Family Care: No Living arrangements: with family Additional living arrangements comments: Spiritual care concerns: No Comments At time of signature, I have reviewed and agree with nursing past medical, surgical, social and family history unless otherwise noted. Please see nursing chart for further information. There is no relevant family history pertinent to the presenting complaint. Exam Narrative: GENERAL: Well-appearing and in no acute distress. ENT: Mucous membranes pink and moist. NECK: Normal AROM. ?Supple. ? CHEST: ?No respiratory distress. Clear to auscultation. HEART: Regular rate and rhythm. ABDOMEN: Soft, nontender, nondistended, normal active bowel sounds. ?No CVA tenderness. SKIN: Warm, dry, no rash. NEURO: No focal deficits. Alert and oriented x3. Gait steady. PSYCH: ?Normal affect. ? Course Course Level of Care: Express Care Visit Vital Signs Vital signs: Vital Signs Temperature 97 F L 10/04/24 14:47 Pulse Rate 69 10/04/24 14:47 Respiratory Rate 16 10/04/24 14:47 Blood Pressure 140/86 10/04/24 14:47 Pulse Oximetry 99 10/04/24 14:47 Temperature 97 F L 10/04/24 14:47 Pulse Rate 69 10/04/24 14:47 Respiratory Rate 16 10/04/24 14:47 Blood Pressure 140/86 10/04/24 14:47 Pulse Oximetry 99 10/04/24 14:47 Reviewed. MDM - Female Genitourinary MDM Narrative Medical decision making narrative: Discussed physical exam findings. Antibiotic for UTI and yeast infection. Advised supportive measures and signs/symptoms to go to the ER. Pt is appropriate for outpatient treatment and follow up. Differential Diagnosis Differential diagnosis: Likely urinary tract infection, bacterial vaginosis and other (STD, yeast) Critical Care Time Critical Care Time Critical Care Time: No Discharge Plan Discharge Clinical Impression: Acute UTI, Vaginal yeast infection Patient Disposition: Home Condition: Stable Instructions: Antibiotic Form Additional Instructions: DO NOT TAKE Fluconazole with your Hydrocodone! Your urine shows infection today. Take Bactrim as prescribed until gone. Your urine will be sent of for a culture to identify what type of bacteria is causing your infection. If the culture shows that your medication will not get rid of your infection, you will be notified and a new antibiotic will be called in for you. If the culture does not identify any bacteria, you may receive a phone call instructing you to stop the Bactrim. If there is no bacteria identified, you will need to follow up with your PCP for further evaluation and treatment if symptoms persist. Patient Language: Estonian Prescriptions: New sulfamethoxazole-trimethoprim [Bactrim DS] 800-160 mg tablet 1 tablet PO Q12H 3 Days Qty: 6 0RF fluconazole 150 mg tablet 150 mg PO ONCE Qty: 2 0RF Rx Instructions: Take second dose if symptoms persist after 72 hours. No Action Cataplex B Core 1 tab-cap PO TID Congaplex 1 tab-cap PO TID Mind Memory Matrix 2 tab-cap PO DAILY ascorbic acid (vitamin C) 1,000 mg Tablet 1 g PO DAILY Acidophilus Capsule 100 mg PO DAILY geriatric multivitamin-min Tablet 1 tablet PO DAILY omega 0-aeq-mgn-fish oil [Fish Oil] 1,200 (144-216) mg Capsule 1 cap PO TID glucosamine sulfate-msm 500-500 mg Tablet 1 tablet PO DAILY Caltrate 600 plus D 600 mg-20 mcg (800 unit) Tablet,Chewable 1 tablet PO DAILY magnesium 100 mg Tablet 100 mg PO HS Progesterone Cream 1 applic topical DAILY hydrocodone-acetaminophen 5-325 mg tablet 1 tablet PO Q6H PRN (Reason: pain) Qty: 10 0RF Follow-up/Referrals: Vannesa,Bony Carranza MD [Primary Care Provider] - Time of Disposition: 15:16
[2024-10-05 11:57] LABS: EDUAAPPEAR Clear; EDUABILI Negative (Negative); EDUABLOOD 1+ (Negative); EDUACOLOR1 Yellow; EDUAGLUCOSE Negative (Negative); EDUAKETONE Negative (Negative); EDUALEUKO 1+ (Negative); EDUANITRATE Negative (Negative); EDUAPH 5.5; EDUAPROTEIN Negative (Negative); EDUAUROBILI 0.2
== END 2024-10-04 15:24 | disposition home or self-care (01) ==
PROVIDERS: PCP Family Medicine
DX: N39.0 Urinary tract infection, site not specified (principal); B37.31 Acute candidiasis of vulva and vagina; Z87.891 Personal history of nicotine dependence; M41.9 Scoliosis, unspecified
CPT/HCPCS: 81003; 87086; 87181; 99213; G0463